=== PATIENT | male | born 1955 | race Caucasian/White ===

== ENCOUNTER 2020-10-21 14:22 | Emergency (ER) | payer MEDICARE, BC ==
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
[2020-10-21 16:45] VITALS: BP 166/84; PULSE 71; O2SAT 97
[2020-10-21] MEDS ORDERED: TORAdol 30 mg Injection IV ONE (16:51)
[2020-10-21] MEDS ORDERED: TORAdol 30 mg Injection ONE (17:09)
== END 2020-10-21 17:19 | disposition home or self-care (01) ==
LOC: ED 14:22
DX: M54.9 Dorsalgia, unspecified (principal); M54.2 Cervicalgia; S16.1XXA Strain of muscle, fascia and tendon at neck level, initial encounter; S39.012A Strain of muscle, fascia and tendon of lower back, initial encounter; M54.6 Pain in thoracic spine; V49.49XA Driver injured in collision with other motor vehicles in traffic accident, initial encounter; M25.552 Pain in left hip; Z79.899 Other long term (current) drug therapy; Z79.01 Long term (current) use of anticoagulants; E11.9 Type 2 diabetes mellitus without complications; J45.909 Unspecified asthma, uncomplicated; G47.30 Sleep apnea, unspecified
CPT/HCPCS: 72125; 72128; 72131; 96374; 99284; J1885